=== PATIENT | female | born 1995 | race Caucasian/White ===

== ENCOUNTER 2018-02-26 08:12 | Inpatient (IN) | payer OTHER ==
[~2018-02-26] VITALS: Ht 168 cm; Wt 78.9 kg
[~2018-02-26 08:12] MED LIST: PREN-161 PO
[2018-02-26] MEDS ORDERED: OXYTOCIN 30 UNITS/LACT RINGERS 500 ML IV ONE ×2 (08:28→08:29)
[2018-02-26] MEDS ORDERED: RINGERS SOLUTION,LACTATED 1,000 ML IV PRN (08:28)
[2018-02-26] MEDS ORDERED: RINGERS SOLUTION,LACTATED 1,000 ML IV ONE ×3 (08:29→11:59)
[2018-02-26] MEDS ORDERED: METOCLOPRAMIDE HCL 5 MG/ML 2 ML VIAL IVP PRN (08:30)
[2018-02-26] MEDS ORDERED: CITRIC ACID/SODIUM CITRATE 30 ML SOLUTION UDCUP PO PRN (08:30)
[2018-02-26] MEDS ORDERED: LIDOCAINE/PF 1% 30 ML VIAL INJ PRN (08:30)
[2018-02-26 08:36] VITALS: BP 134/88
[2018-02-26] MEDS: FentaNYL CITRATE-PF 100 MCG/2 ML VIAL IVP PRN ×2 (08:52→09:16)
[2018-02-26] MEDS: RINGERS SOLUTION,LACTATED 1,000 ML IV SCH ×2 (08:52→09:26)
[2018-02-26 09:03] LABS: BASOPHILS % (AUTO) 0.8 % (0.0-2.0); EOSINOPHILS % (AUTO) 0.1 % (1.0-6.0); HEMATOCRIT 33.4 % (36-46); HEMOGLOBIN 11.1 g/dL (12.0-16.0); LYMPHOCYTES # (AUTO) 1.1 K/uL (1.0-4.8); LYMPHOCYTES % (AUTO) 11.3 % (22.0-44.0); MEAN CORPUSCULAR HEMOGLOBIN 25.7 pg (26.0-34.0); MEAN CORPUSCULAR HGB CONC 33.3 G/dL (31.0-37.0); MEAN CORPUSCULAR VOLUME 77 fL (80-100); MONOCYTES # (AUTO) 0.5 K/uL (0.1-1.0); MONOCYTES % (AUTO) 4.9 % (2.0-9.0); NEUTROPHILS # (AUTO) 8.2 K/uL (1.8-7.7); NEUTROPHILS % (AUTO) 82.9 % (40.0-70.0); PLATELET COUNT (AUTO)-OB 167 K/uL (150-450); RED BLOOD CELL COUNT(AUTO) 4.32 MIL/uL (4.00-5.20)
[2018-02-26] MEDS ORDERED: ROPIVACAINE HCL/PF 0.2% 100 ML ED ONE (09:17)
[2018-02-26] MEDS ORDERED: ONDANSETRON HCL 4 MG/2 ML VIAL IVP PRN (09:30)
[2018-02-26] MEDS ORDERED: ROPIVACAINE HCL/PF 0.2% 100 ML ED PRN (09:30)
[2018-02-26] MEDS ORDERED: DiphenhydrAMINE HCL 50 MG/ML VIAL IVP PRN (09:30)
[2018-02-26] MEDS ORDERED: OxyCODONE HCL/ACETAMINOPHEN 5-325 MG TABLET PO PRN ×3 (12:00)
[2018-02-26] MEDS ORDERED: IBUPROFEN 600 MG TABLET PO PRN (12:00)
[2018-02-26] MEDS ORDERED: GLYCERIN/WITCH HAZEL LEAF 40 PADS JAR TP PRN ×2 (12:00)
[2018-02-26] MEDS ORDERED: MEASLES/MUMPS/RUBELLA VACCINE, LIVE 0.5 ML/VIAL SQ ONE (12:00)
[2018-02-26] MEDS ORDERED: LANOLIN 7 GM OINTMENT TP PRN ×2 (12:00)
[2018-02-26] MEDS ORDERED: BENZOCAINE 20%/MENTHOL 56 GM SPRAY CANISTER TP PRN ×2 (12:00)
[2018-02-26] MEDS: IBUPROFEN 600 MG TABLET PO PRN (19:37)
[2018-02-26] MEDS ORDERED: OXYGEN THERAPY IH SCH (20:00)
[2018-02-26] MEDS: OxyCODONE HCL/ACETAMINOPHEN 5-325 MG TABLET PO PRN (20:42)
[2018-02-26] MEDS ORDERED: MAGNESIUM HYDROXIDE SUSPENSION 30 ML UDCUP PO SCH ×2 (21:00)
[2018-02-27] MEDS: OxyCODONE HCL/ACETAMINOPHEN 5-325 MG TABLET PO PRN (05:18)
[2018-02-27] MEDS: IBUPROFEN 600 MG TABLET PO PRN (05:18)
[2018-02-27] MEDS ORDERED: IBUP-2071 PO (08:38)
[2018-02-27] MEDS ORDERED: DSS100 PO (08:39)
== END 2018-02-27 12:35 | disposition home or self-care (01) | DRG 807 ==
LOC: 4S 08:12 → OBSVTOIN 08:12 → PREOBSVTOIN 03-11 15:22
PROVIDERS: ADMIT Obstetrics & Gynecology; ATTEND Obstetrics & Gynecology
PROC: 10E0XZZ Delivery of Products of Conception, External Approach (ICD-10-PCS; principal; 2018-02-26)
PROC: 10907ZC Drainage of Amniotic Fluid, Therapeutic from Products of Conception, Via Natural or Artificial Opening (ICD-10-PCS; 2018-02-26)
PROC: 3E0R3BZ Introduction of Anesthetic Agent into Spinal Canal, Percutaneous Approach (ICD-10-PCS; 2018-02-26)
PROC: 00HU33Z Insertion of Infusion Device into Spinal Canal, Percutaneous Approach (ICD-10-PCS; 2018-02-26)
PROC: 3E02340 Introduction of Influenza Vaccine into Muscle, Percutaneous Approach (ICD-10-PCS; 2018-02-26)
DX: O69.81X0 Labor and delivery complicated by cord around neck, without compression, not applicable or unspecified (principal); Z37.0 Single live birth; O77.0 Labor and delivery complicated by meconium in amniotic fluid; O66.5 Attempted application of vacuum extractor and forceps; Z3A.40 40 weeks gestation of pregnancy; Z23 Encounter for immunization
CPT/HCPCS: 86850; 86900; 86901; 90686; J2590; J2795; J3010; J7120